=== PATIENT | female | born 1970 | race Caucasian/White ===

== ENCOUNTER 2016-07-29 16:41 | Emergency (ER) | payer OTHER ==
[2016-07-29 16:48] VITALS: O2SAT 96
--- NOTE | 2016-07-29 16:49 | EDPHY ---
H & P Stated Complaint: substernal cp/dyspnea and cough HPI/ROS: CHIEF COMPLAINT: Chest pain HISTORY OF PRESENT ILLNESS: The patient is a 46-year old female presenting with substernal chest pain that started at 6:30 a.m. today. The patient describes pain radiates through to her back. Her pain is worse with deep inhalation. She took Tylenol 1.5 hours ago with no relief. She states she has this pain "on and off for some time" and it is occasionally related to her menstrual cycle. No nausea, vomiting, or fever. The patient has had an ongoing cough for the past few days. She has episodes of sharp left sided scapular pain that wake her up at night. No arm numbness or weakness, no neck pain. No current headache ( see ROS). REVIEW OF SYSTEMS: A ten point review of systems was performed and is negative with the exception of the items mentioned in the HPI. Also--Around 12 p.m. today, about 5 hours ago , the patient reports an episode of visual . She states she was unable to see the bottom of the letter "e" and saw zig-zags in her vision. This resolved without intervention. Of note, the patient had onset of headache last night, now gone. She has occasional hot flashes, has noticed them for the past few days. Source: Patient - Personal History LMP (Females 10-55): Now Current Tetanus/Diphtheria Vaccine: Yes - Medical/Surgical History Hx Asthma: No Hx Chronic Respiratory Disease: No Hx Diabetes: No Hx Cardiac Disease: No Hx Renal Disease: No Hx Cirrhosis: No Hx Alcoholism: No Hx HIV/AIDS: No Hx Splenectomy or Spleen Trauma: No Other PMH: denies - Social History Smoking Status: Never smoked Additional Social History: Drinks 3-4 glasses of wine per night. . - Physical Exam Exam: General Appearance: Alert. Vital signs reviewed. Blood pressure 139/91. Eyes: Pupils equal and round, no conjunctival injection, no discharge. Anicteric. ENT, Mouth: Mucous membranes are moist, no oropharyngeal erythema or edema. Neck: No lymphadenopathy, supple. Respiratory: Lungs are clear to auscultation; no wheezes, rales, or rhonchi. Cardiovascular: Regular rate and rhythm; no murmur, rub, or gallop. Gastrointestinal: Abdomen is soft and nontender, no masses or organomegaly, bowel sounds normal. Skin: Warm and dry, no rashes on exposed skin, normal color. Back: Nontender to palpation over the thoracolumbar spine. No CVAT. Extremities: No lower extremity edema, no calf tenderness or swelling. Neurological: Alert and oriented. Moving all four extremities easily and equally. PERRL. EOMI. Tongue midline. Facial expressions symmetric. 5/5 bilateral upper and lower extremity strength. Sensation intact to light touch over upper extremities. Psychiatric: Normal affect. Constitutional: Initial Vital Signs Temperature (C) 36.7 C 07/29/16 16:45 Heart Rate 76 07/29/16 16:45 Respiratory Rate 16 07/29/16 16:45 Blood Pressure 139/91 H 07/29/16 16:45 O2 Sat (%) 96 07/29/16 16:45 O2 Delivery Mode Room Air Allergies/Adverse Reactions: amoxicillin Allergy (Verified 07/29/16 16:44) Home Medications: Medication Instructions Recorded Bcp 07/29/16 Medical Decision Making - Diagnostics EKG Interpretation: The 12 lead EKG was interpreted by myself. See hard copy and/or "tracemaster" electronic copy for interpretation": Sinus rhythm. ED Course/Re-evaluation: The patient is a healthy female presenting with substernal chest pain that has been ongoing since 6:30 a.m., about 11 hours ago. Her chest pain radiates to her back and is worse with deep inhalation. She took Tylenol 1.5 hours ago with no relief. Plan for GI cocktail. I will check labs, troponin, chest x-ray, and EKG. An x-ray of chest was obtained. I viewed the images myself on the PACS system. No pneumonia. See the full radiology report in the imaging section. Labs are WNL. D-dimer is negative. Troponin is normal. HEART score is one. Based upon HEART study, her risk of major cardiac event within 6 weeks is o.9- 1.7%. I think that she can safely follow up in outpatient setting. 7:00 p.m.: The patient is feeling better after Gi cocktail and IV Pepcid. I suspect symptoms are due to acid reflux. I suggested the patient start Pepcid. I do not think symptoms are cardiac or pulmonary. Her earlier visual changes sound like an ocular migraine. Differential Diagnosis: DDX includes but is not limited to ACS, PE, pneumonia or other infectious process, costochondritis, pericarditis, GERD. - Data Points Laboratory Results: Laboratory Results 07/29/16 17:30 07/29/16 17:30 Medications Given: Discontinued Medications Al Hydroxide/Mg Hydroxide (Maalox Susp) 30 ml PO ONCE ONE Stop: 07/29/16 17:16 Last Admin: 07/29/16 17:20 Dose: 30 ml Aspirin (Aspirin) 324 mg PO EDNOW ONE Stop: 07/29/16 17:16 Last Admin: 07/29/16 17:20 Dose: 324 mg Famotidine (Pepcid) 20 mg PO EDNOW ONE Stop: 07/29/16 17:16 Last Admin: 07/29/16 17:20 Dose: 20 mg Hyoscyamine Sulfate (Levsin, Hyomax-Sl) 0.25 mg PO ONCE ONE Stop: 07/29/16 17:16 Last Admin: 07/29/16 17:20 Dose: 0.25 mg Lidocaine (Lidocaine 2% Viscous) 15 ml PO ONCE ONE Stop: 07/29/16 17:16 Last Admin: 07/29/16 17:20 Dose: 15 ml Departure - Departure Disposition: Home, Routine, Self-Care Clinical Impression: GERD (gastroesophageal reflux disease), Chest pain Condition: Good Instructions: Gastroesophageal Reflux Disease (ED) Additional Instructions: 1. I recommend you start taking Pepcid for the next few weeks. Take this medication as directed. 2. Try sleeping upright at night to prevent acid reflux. 3. If pain persists I recommend 650mg Tylenol. 3. You have been referred to the [facility] primary care physician. Please call the physician to arrange a followup appointment. Referrals: Dionne Queen MD [[facility] [place] Primary Care Provider] - As per Instructions Report Scribed by: Radha Schumacher Physician Review and Approval Statement: 07/29/16 16:49 Portions of this note were transcribed by the medical planner. I, Dr. Diana Hua, personally performed the history, physical exam, and medical decision- making; and confirmed the accuracy of the information in the transcribed note.
[2016-07-29] MEDS ORDERED: ASPIRIN 81 MG CHEWABLE TAB PO ONE (17:15)
[2016-07-29] MEDS ORDERED: FAMOTIDINE 20 MG TAB PO ONE (17:15)
[2016-07-29] MEDS ORDERED: HYOSCYAMINE SULFATE 0.125 MG TAB PO ONE (17:15)
[2016-07-29] MEDS ORDERED: MAG HYDROX/AL HYDROX/SIMETH 30 ML UDCUP PO ONE (17:15)
[2016-07-29] MEDS ORDERED: LIDOCAINE 2% VISCOUS 15 ML UDCUP PO ONE (17:15)
--- NOTE | 2016-07-29 17:39 | CPEKG ---
Heart Rate: 70 RR Interval: 857 P-R Interval: 152 QRSD Interval: 84 QT Interval: 408 QTC Interval: 441 P [place]: 40 QRS [place]: 59 T Wave [place]: 22 EKG Severity - NORMAL ECG - EKG Impression: SINUS RHYTHM Electronically Signed By: Diana Hua 29-Jul-2016 17:41:11
[2016-07-29 17:40] LABS: % IMMATURE GRANULYOCYTES 0.3 % (0.0-1.1); ABSOLUTE IMMATURE GRANULOCYTES 0.02 10^3/uL (0.00-0.10); ADD DIFF? NO; ADD MORPH? NO; ADD SCAN? NO; ATYPICAL LYMPHOCYTE FLAG 0 (0-99); FRAGMENT RBC FLAG 0 (0-99); LEFT SHIFT FLG 0 (0-99); LIPEMIA HEMOLYSIS FLAG 90 (0-99); MEAN CELL HEMOGLOBIN 30.4 pg (27.9-34.1); MEAN CELL HEMOGLOBIN CONCENTR. 34.2 g/dL (32.4-36.7); MEAN CELL VOLUME 88.8 fL (81.5-99.8); MEAN PLATELET VOLUME 9.9 fL (8.7-11.7); PLATELET CLUMPS FLAG 0 (0-99); PLATELET COUNT 249 10^3/uL (150-400); RED BLOOD CELL COUNT 4.28 10^6/uL (4.18-5.33); RED CELL DISTRIBUTION WIDTH 12.5 % (11.5-15.2)
[2016-07-29 18:03] LABS: ANION GAP 7 mEq/L (8-16); CALCIUM 9.1 mg/dL (8.5-10.4); CARBON DIOXIDE 24 mEq/l (22-31); CHLORIDE 107 mEq/L (97-110); CREATININE 0.8 mg/dL (0.6-1.0); GLOMERULAR FILTRATION RATE > 60; GLUCOSE 97 mg/dL (70-100); POTASSIUM 3.9 mEq/L (3.5-5.2); SODIUM 138 mEq/L (134-144)
[2016-07-29 18:15] LABS: TROPONIN I < 0.012 ng/mL (0-0.034)
[2016-07-29 19:20] VITALS: BP 120/78; PULSE 58; RESP 12; TEMP 98.1
== END 2016-07-29 19:18 | disposition home or self-care (01) ==
DX: K21.9 Gastro-esophageal reflux disease without esophagitis (principal)